=== PATIENT | female | born 1980 | race Caucasian/White ===

== ENCOUNTER → 2020-08-01 | Outpatient (CLI) | payer BC, OTHER ==
[2020-08-01 09:57] LABS: HEMOGLOBIN 12.2 gm/dl (12.3-15.3); RED BLOOD COUNT 4.69 M/UL (4.00-5.10); WHITE BLOOD COUNT 8.9 K/UL (4.5-11.0)
[2020-08-01 10:15] LABS: BUN/CREATININE RATIO 18 (0-10)
[2020-08-02 08:14] LABS: ESTRADIOL 56.6 pg/mL (.); FSH, SERUM 7.6 mIU/mL (.); PROGESTERONE 0.1 ng/mL (.); PROLACTIN 24.4 ng/mL (4.8-23.3); TESTOSTERONE, SERUM 20 ng/dL (8-48); VITAMIN D, 25-HYDROXY 9.7 ng/mL (30.0-100.0)
[2020-08-05 15:11] LABS: ESTRONE, SERUM 85 pg/mL (.)
== END ==
LOC: LAB 09:13
PROVIDERS: Nurse Practitioner Family
DX: E03.9 Hypothyroidism, unspecified (principal); E55.9 Vitamin D deficiency, unspecified; E53.8 Deficiency of other specified B group vitamins; F41.9 Anxiety disorder, unspecified; F32.9 Major depressive disorder, single episode, unspecified; R53.1 Weakness; R53.83 Other fatigue; Z79.899 Other long term (current) drug therapy
CPT/HCPCS: 80053; 80061; 82607; 82627; 82670; 82679; 83001; 83002; 83036; 83540; 83550; 83970; 84144; 84146; 84206; 84403; 84439; 84443; 84550; 85025

== ENCOUNTER → 2020-11-04 | Outpatient (CLI) | payer BC, OTHER | LOC: LAB 06:51 | DX: Z01.812 Encounter for preprocedural laboratory examination (principal); Z20.822 Contact with and (suspected) exposure to COVID-19 | CPT/HCPCS: U0003 ==

== ENCOUNTER → 2020-12-24 | Outpatient (CLI) | payer BC, OTHER | LOC: US 08:39 | DX: D44.0 Neoplasm of uncertain behavior of thyroid gland (principal) ==

== ENCOUNTER → 2022-03-26 | Outpatient (CLI) | payer BC, OTHER | LOC: LAB 13:35 | DX: E11.9 Type 2 diabetes mellitus without complications (principal) | CPT/HCPCS: 82043 ==